=== PATIENT | male | born 1970 | race Hispanic/Latino ===

== ENCOUNTER 2017-12-01 13:10 | Observation (INO) | payer BC ==
[~2017-12-01] VITALS: Ht 175.3 cm; Wt 119.8 kg
[2017-12-01] MEDS ORDERED: ONDANSETRON HCL INJ 2 MG/ML VIAL ONE (14:37)
[2017-12-01] MEDS ORDERED: KETOROLAC TROMETHAMINE 30 MG/ML VIAL ONE (14:37)
[2017-12-01] MEDS ORDERED: SEVOFLURANE INHAL SOLN 250 ML PEN BTL ONE (14:37)
[2017-12-01] MEDS ORDERED: DEXAMETHASONE SOD PHOS INJ 4 MG/ML VIAL ONE (14:37)
[2017-12-01] MEDS ORDERED: PROPOFOL IV EMULSION 10 MG/ML 20 ML VIAL ONE (14:37)
[2017-12-01] MEDS ORDERED: LIDOCAINE HCL 2% LOCAL INJ 5 ML SDV VIAL INJ ONE (14:37)
[2017-12-01 15:32] LABS: BILIRUBIN,URINE NEGATIVE (NEGATIVE); CLARITY,URINE CLEAR (CLEAR); COLOR,URINE YELLOW (YELLOW); KETONES,URINE NEGATIVE (NEGATIVE); LEUKOCYTE ESTERASE ,URINE NEGATIVE (NEGATIVE); NITRITE,URINE NEGATIVE (NEGATIVE); PROTEIN,URINE DIPSTICK NEGATIVE (NEGATIVE); URINE UROBILINOGEN 0.2 mg/dL (0.2 - 1)
--- NOTE | 2017-12-01 15:37 | Diagnostic Imaging Report ---
PROCEDURE: CT ABDOMEN AND PELVIS WITHOUT CONTRAST TECHNIQUE: The abdomen and pelvis were scanned utilizing a multidetector helical scanner from the diaphragm to the lesser trochanter after the oral administration of water. No IV contrast was administered per protocol. Coronal and sagittal multiplanar reformations were obtained. COMPARISON: None. INDICATIONS: LEFT FLANK PAIN FINDINGS: ABSENCE OF INTRAVENOUS CONTRAST DECREASES SENSITIVITY FOR DETECTION OF FOCAL LESIONS AND VASCULAR PATHOLOGY. LOWER THORAX: Lung bases are clear. HEPATOBILIARY: Normal hepatic size and contour. Diffusely decreased attenuation of the hepatic parenchyma with fatty sparing surrounding the gallbladder fossa. No focal lesions. No biliary ductal dilation. Gallbladder is unremarkable. SPLEEN: No splenomegaly. PANCREAS: No focal masses or ductal dilatation. ADRENALS: No adrenal nodules. KIDNEYS/URETERS: Renal calculi as follows: * 7 mm obstructing calculus in the distal left ureter (series 3, image 49, and sagittal image 90), which results in mild left hydronephrosis and hydroureter. * 3 mm nonobstructing calculus in the left interpolar region (series 3, image 67). * Punctate, nonobstructing calculus in the left mid to the inferior aspect (series 3, image 76). * Punctate, nonobstructing calculus in the interpolar right kidney (series 3, image 75). * 2-3 mm nonobstructing calculus in the right inferior pole (series 3, image 85). No right ureteral calculi, hydronephrosis, or obstruction. No significant perinephric stranding. No contour abnormalities. PELVIC ORGANS/BLADDER: Bladder is unremarkable. No focal lesions or stones. Prostate and seminal vesicles are unremarkable. PERITONEUM / RETROPERITONEUM: No free air or fluid. LYMPH NODES: No lymphadenopathy. VESSELS: Unremarkable. GI TRACT: No bowel dilation or evidence of obstruction. BONES AND SOFT TISSUES: No acute bony abnormalities. Mild degenerative changes in the lumbosacral spine. No aggressive lytic lesions. Mild degenerative changes in bilateral sacroiliac joints. Soft tissues are grossly unremarkable. IMPRESSION: 1. 7 mm obstructing calculus in the distal left ureter, which results in mild left hydronephrosis and hydroureter. 2. Bilateral punctate to 3 mm nonobstructing renal calculi, as described. No right ureteral calculus, hydronephrosis, or obstruction. 3. Diffuse hepatic steatosis. Julito Rodriguez M.D. Dictated by: Julito Rodriguez M.D. on 12/01/2017 at 15:40 Electronically approved by: Julito Rodriguez M.D. on 12/01/2017 at 15:40
[2017-12-01 15:38] LABS: RBC,URINE 0-5 /HPF (0-5); WBC,URINE (MAN) 0-5 /HPF (0-5)
[2017-12-01 16:11] LABS: BASOPHILS % 0.5 % (0.0-1.0); EOSINOPHILS # (AUTO) 0.4 (0.0-0.4); EOSINOPHILS % 5.3 % (0.0-6.0); HEMOGLOBIN 14.7 g/dL (14.0-18.0); LYMPHOCYTES # (AUTO) 2.5 (1.0-3.2); LYMPHOCYTES % 33.6 % (18.0-39.1); MEAN CORPUSCULAR HEMOGLOBIN 30.4 pg (28-32); MEAN CORPUSCULAR VOLUME 86.8 fL (81-99); MONOCYTES # (AUTO) 0.6 (0.2-0.8); MONOCYTES % 7.6 % (4.4-11.3); NEUTROPHILS % 52.6 % (38.7-80.0); PLATELET COUNT 232 x10e3/uL (140-360); RED BLOOD COUNT 4.84 x10e6/uL (4.3-5.7)
[2017-12-01 16:23] LABS: ANION GAP 11.2 mmol/L (8-16); CALCIUM 9.7 mg/dL (8.4-10.2); CREATININE, SERUM 1.78 mg/dL (0.72-1.25); POTASSIUM 4.2 mmol/L (3.5-5.1)
[2017-12-01] MEDS ORDERED: KETOROLAC TROMETHAMINE 30 MG/ML VIAL IV STA (17:16)
[2017-12-01] MEDS ORDERED: ONDANSETRON HCL INJ 2 MG/ML VIAL IV PRN (17:30)
[2017-12-01] MEDS ORDERED: HYDROMORPHONE 1MG/1ML INJ IV PRN (17:30)
[2017-12-01] MEDS: SODIUM CHLORIDE 0.9% 1000ML 1,000 ML IV SCH (17:56)
[2017-12-01] MEDS ORDERED: ACETAMINOPHEN 325 MG TAB PO PRN (19:45)
--- NOTE | 2017-12-01 19:56 | History and Physical ---
HISTORY OF PRESENT ILLNESS: A 47-year-old male past with medical history positive for recurrent kidney stones. Came here with left flank pain for a few days. Patient was diagnosed with kidney stone on the left kidney. REVIEW OF SYSTEMS: CARDIOVASCULAR: No chest pain or palpitations. RESPIRATORY: No shortness of breath. No cough. GASTROINTESTINAL: No nausea vomiting or diarrhea. GENITOURINARY: No frequency and no dysuria, but he does have left flank pain. No hematuria. ALLERGIES: NOT ALLERGIC TO ANY MEDICATION. SOCIAL HISTORY: He does not smoke and he does not drink. PAST MEDICAL HISTORY: Recurrent kidney stone with prior kidney stone a few years ago. PHYSICAL EXAMINATION: HEART: Regular rhythm. No murmur. No extra sounds. LUNGS: Clear bilaterally. ABDOMEN: Soft. Nondistended, nontender, no visceromegaly. EXTREMITIES: Show no evidence of cyanosis, edema or trauma. LABORATORY DATA: On the blood work we have a BMP with a sodium 137, potassium 4.2, chloride 106. CO2 24. BUN 21, creatinine 1.78, glucose 91. On the CBC white blood count 7.53, hemoglobin 14.7, hematocrit 42.0, platelet count 232,000. CT of the abdomen showed nonobstructive kidney stones on both kidneys and a left hydronephrosis with a 7 mm distal ureteral stone. FINAL IMPRESSION: 1. Left kidney stone with left hydronephrosis. 2. Acute renal failure. PLAN OF TREATMENT: Continue with IV fluids. Dilaudid 1 mg IV q.3 h. as needed. Zofran 4 mg q.4 h. as needed. Sodium chloride 125 mL an hour. A urology consult with Dr. Calvillo. Patient will have another BMP tomorrow to monitor the kidney function. We are going to do a KUB tomorrow also. Job#: [id number]
[2017-12-02] VITALS (7 sets, daily range): BP systolic 118–166; BP diastolic 76–94
[2017-12-02] MEDS: SODIUM CHLORIDE 0.9% 1000ML 1,000 ML IV SCH ×3 (01:47→18:40)
--- NOTE | 2017-12-02 05:50 | Diagnostic Imaging Report ---
ABDOMEN-1VIEW (KUB) Clinical history: Kidney stone Technique: AP view abdomen Comparison: 12/01/2017 Findings: Abdomen: Nonobstructive bowel gas pattern. Other: 4 to 5 mm calcification projects over the left lateral mid sacrum. Nonobstructing 3 mm left superior renal calculus. Impression: 4 to 5 mm calcification over the left pelvis may correspond to distal ureteral stone seen on CT. Signed by: Dr Mary Beth Parrish MD on 12/02/2017 5:46 AM
[2017-12-02 06:10] LABS: BASOPHILS % 0.5 % (0.0-1.0); EOSINOPHILS # (AUTO) 0.4 (0.0-0.4); EOSINOPHILS % 5.5 % (0.0-6.0); HEMOGLOBIN 14.1 g/dL (14.0-18.0); LYMPHOCYTES # (AUTO) 2.3 (1.0-3.2); LYMPHOCYTES % 31.3 % (18.0-39.1); MEAN CORPUSCULAR HEMOGLOBIN 30.7 pg (28-32); MEAN CORPUSCULAR HGB CONC 35.3 g/dL (31-35); MONOCYTES # (AUTO) 0.6 (0.2-0.8); MONOCYTES % 8.8 % (4.4-11.3); NEUTROPHILS # (AUTO) 3.9 (2.1-6.9); NEUTROPHILS % 53.4 % (38.7-80.0); PLATELET COUNT 230 x10e3/uL (140-360); RED CELL DISTRIBUTION WIDTH 11.9 % (11.7-14.4)
[2017-12-02 06:42] LABS: ANION GAP 12.7 mmol/L (8-16); CALCIUM 9.2 mg/dL (8.4-10.2); CREATININE, SERUM 1.71 mg/dL (0.72-1.25); POTASSIUM 4.7 mmol/L (3.5-5.1)
--- NOTE | 2017-12-02 15:17 | Diagnostic Imaging Report ---
PROCEDURE:X-RAY ABDOMEN - KUB COMPARISON:[facility], CT, CT ABDOMEN/PELVIS WO, 12/01/2017, 14:59. INDICATIONS:F/U KIDNEY STONE FINDINGS: There is a non-obstructed bowel-gas pattern. 3 mm nonobstructing calculus projecting in the superior to mid left renal shadow. 7 mm radiopaque density projecting over the left sacrum, corresponding to the previously visualized distal left ureteral calculus. No other radiopaque densities are visualized. No acute bony abnormalities. CONCLUSION: 1. Stable 7 mm nonobstructing distal left ureteral calculus. 2. Stable 3 mm nonobstructing calculus in the superior to mid left kidney Julito Rodriguez M.D. Dictated by: Julito Rodriguez M.D. on 12/02/2017 at 15:20 Electronically approved by: Julito Rodriguez M.D. on 12/02/2017 at 15:20
--- NOTE | 2017-12-02 15:37 | Progress Note ---
DATE: ADDENDUM TO INTERNAL MEDICINE PROGRESS NOTE ADDITIONAL DIAGNOSES 1. Obesity. 2. [id number] renal failure, stage 3. Continue IV fluids. Continue monitoring BUN and creatinine. Job#: [id number]
--- NOTE | 2017-12-02 15:38 | Progress Note ---
DATE: INTERNAL MEDICINE PROGRESS NOTE SUBJECTIVE: Patient is doing better. No significant pain today. Patient still has a kidney stone, and we are waiting for Dr. Calvillo, urologist, to decide about a stent. The 2nd x-ray that we had done today still is showing the stone in the distal ureter. PHYSICAL EXAM: HEART: Shows regular rhythm, normal S1 and S2 sounds. LUNGS: Clear bilaterally. ABDOMEN: Soft. No tenderness, no distention, no visceromegaly. EXTREMITIES: Show no evidence of cyanosis, edema or trauma. VITAL SIGNS: Blood pressure 118/78. Temperature 96.3. Heart rate 62 per minute. Respiratory rate is 18 per minute. Oxygen saturation 98%. On the BMP: Sodium 138, potassium 4.7, chloride 106, CO2 24, BUN 24, creatinine 1.71, glucose 109. On the CBC: White blood count 7.31, hemoglobin 14.1, hematocrit 40.0, platelet count 230,000. The KUB showed a distal ureteral stone. FINAL IMPRESSION: 1. Left distal ureteral stone with hydronephrosis. 2. Acute renal failure on chronic renal failure. PLAN OF TREATMENT: Continue normal saline at 125 mL an hour. Continue Dilaudid 1 mg IV q.3 h. as needed. Zofran 4 mg IV q.4 h. as needed. Tylenol 325 mg q.[address] Calvillo, urologist, is following the case, and the patient might need a stent. Job#: [id number] EV
[2017-12-03 00:30] VITALS: BP 136/80
[2017-12-03 05:00] VITALS: BP 146/77
[2017-12-03] MEDS: SODIUM CHLORIDE 0.9% 1000ML 1,000 ML IV SCH (05:07)
[2017-12-03] MEDS ORDERED: IOPAMIDOL 610MG/1ML 300 MG/ML VIAL IV ONE (07:32)
[2017-12-03 07:55] LABS: ANION GAP 12.4 mmol/L (8-16); CALCIUM 8.8 mg/dL (8.4-10.2); CREATININE, SERUM 1.43 mg/dL (0.72-1.25); POTASSIUM 4.4 mmol/L (3.5-5.1)
[2017-12-03] MEDS ORDERED: LEVOFLOXACIN 500MG/D5W 100ML 100 ML IV ONE ×2 (08:03→09:00)
[2017-12-03 08:04] VITALS: BP 151/99
[2017-12-03 09:03] VITALS: BP 123/74
--- NOTE | 2017-12-03 09:13 | Consultation ---
DATE OF CONSULTATION: December 03, 2017 CHIEF COMPLAINT: Left ureteral stone. HISTORY OF PRESENT ILLNESS: Mr. Licea is a 47-year-old male who was in his usual state of health until 5 days ago. He complains of acute, severe, sharp left-sided flank pain. Denied fevers, no chills. Positive nausea and denied vomiting. PAST MEDICAL HISTORY: Notable for kidney stones. MEDICATIONS: Please see MAR. ALLERGIES: NKDA. SOCIAL HISTORY: He does not smoke or drink. FAMILY HISTORY: Denied urologic stones or malignancies. REVIEW OF SYSTEMS: Noncontributory to the 12-point review of systems. PHYSICAL EXAMINATION GENERAL: A middle-aged male currently in no acute distress. VITALS: Currently he is afebrile with stable vital signs. HEENT: The sclerae are anicteric. NECK: Supple. BACK: Without costovertebral angle tenderness bilaterally. ABDOMEN: Soft and nontender, nondistended. There is no palpable mass. No palpable hernias. No palpable lymphadenopathy. : Normal male external genitalia. EXTREMITIES: No edema. NEURO: Alert. PSYCH: Mood appropriate. SKIN: Intact, normal color. PERTINENT LABORATORY DATA: CT scan revealing a 7 mm left distal ureteral calculus and proximal hydronephrosis, 3 mm left mid pole stone, 1 mm left mid pole stone, 1 mm right mid pole stone, a 3 mm right lower pole stone. Urinalysis positive blood. Hemoglobin 14, hematocrit 42, platelet count 232,000. White blood cell count 7500. Sodium 137. Potassium 4.2, chloride 106, bicarb 24. BUN 21. Creatinine 1.78. Glucose 94. IMPRESSION: 1. Left ureteral calculus. 2. Left hydronephrosis. 3. Acute renal failure. 4. Renal colic. 5. Hydronephrosis. 6. Microscopic hematuria. PLAN: Will employ a brief trial of passage and should this fail the patient will need stenting and dilation with antibiotics. Renal failure with outpatient followup for definitive management of stones. Thank you for allowing me to participate in the care of your patient. Will be happy to follow along with you. Job#: [id number]
--- NOTE | 2017-12-03 09:15 | Operative Report ---
DATE OF PROCEDURE: December 03, 2017 PREOPERATIVE DIAGNOSES 1. Left-sided hydronephrosis. 2. Left ureteral calculus. 3. Microscopic hematuria. POSTOPERATIVE DIAGNOSES 1. Left-sided hydronephrosis. 2. Left ureteral calculus. 3. Microscopic hematuria. PROCEDURES 1. Cystourethroscopy with right visualization and retrograde pyelogram (entirely separate procedure for diagnosis of microscopic hematuria). 2. Cystourethroscopy with insertion of a left indwelling (entirely separate procedure for diagnosis of left hydronephrosis). 3. Supervision of fluoroscopy. 4. Interpretation of retrograde pyelography. ANESTHESIA: General. ESTIMATED BLOOD LOSS: Minimal. COMPLICATIONS: None. INDICATIONS FOR PROCEDURE: Mr. Licea is a 47-year-old male, who has failed a trial of passage. He and I had a long discussion of alternatives, risks, and benefits of nothing, cystoscopy, stent placement, percutaneous nephrostomy, open surgery. He voiced understanding of the options, the alternatives, the risks, and the benefits, and he elected to proceed. PROCEDURE IN DETAIL: After informed consent was obtained, the patient was taken to the operating suite. He was placed supine on the operating table. He underwent general anesthesia by the anesthesia service. He was placed in dorsal lithotomy position, sterilely prepped and draped in a standard fashion for cystoscopy. A 22.5-Scottish cystoscope was inserted per urethra. A normal urethral was noted. Panendoscopy of the bladder revealed no tumors and no stones. Both ureteral orifices were within normal anatomic location and position and seen to efflux clear urine. Bilateral retrograde pyelogram was performed. The right was normal. Left revealed 5 x 5-mm distal ureteral calculus with proximal hydronephrosis. Guidewire was inserted. Ureteral stent was deployed with a coil in renal pelvis. There was a plethora of bloody drainage from this. At this time, bladder was drained, patient was awakened from anesthesia, and transported to recovery room in excellent condition with no untoward effects noted. SUPERVISION OF FLUOROSCOPY, INTERPRETATION OF RETROGRADE PYELOGRAPHY: I was present throughout the entire procedure and I supervised the use of fluoroscopy as there was no radiologist at the time of procedure. Attention was turned toward the right and left ureteral orifices. A 5-Scottish open-ended catheter revealing delicate ureters, delicate pelvicaliceal systems, no evidence efflux on the right. No hydronephrosis on the right. In left side, there was a distal 5 x 5-mm calculus with proximal hydronephrosis. Postoperative views on the left side reveals stent in good position. Job#: [id number] CQ
[2017-12-03] MEDS ORDERED: FENTANYL CITRATE/PF 100MCG/2 ML INJ ONE (18:58)
[2017-12-03] MEDS ORDERED: MIDAZOLAM HCL 2 MG/2 ML VIAL ONE (18:58)
--- NOTE | 2017-12-04 01:33 | Discharge Summary ---
HISTORY OF PRESENT ILLNESS: [id number]old male with past medical history negative for any significant medical condition except for borderline hypertension, came here with left ureteral kidney stone, which did not pass by itself. He had a stent placed by Dr. Calvillo, went home. PHYSICAL EXAM: Heart: Shows regular rhythm, normal S1 and S2 sounds. Lungs: Clear bilaterally. Abdomen: Soft. FINAL IMPRESSION: Left ureteral kidney stone, status post stent placement. Patient was discharged home with instruction to follow up with Dr. Calvillo in a week and myself in 2 weeks. RICARDO MONTOYA MD Job#: [id number]
== END 2017-12-03 10:17 | disposition home or self-care (01) ==
LOC: ER 13:10 → ERHOLD 17:32 → IMCU 12-02 01:53
PROVIDERS: ADMIT Internal Medicine; ATTEND Internal Medicine
DX: N13.2 Hydronephrosis with renal and ureteral calculous obstruction (principal); Z87.442 Personal history of urinary calculi; N17.9 Acute kidney failure, unspecified; R31.29 Other microscopic hematuria; N18.3 Chronic kidney disease, stage 3 (moderate); E66.9 Obesity, unspecified; Z68.41 Body mass index [BMI] 40.0-44.9, adult; I12.9 Hypertensive chronic kidney disease with stage 1 through stage 4 chronic kidney disease, or unspecified chronic kidney disease
CPT/HCPCS: 36415 ×3; 52332; 74018; 74176; 74420; 80048 ×3; 81001; 85025 ×2; 87086; 99284; C1758; C1874; G0378 ×3; J1100; J1170; J1885; J1956; J2001; J2250; J2405; J7030 ×3; Q9967

== ENCOUNTER → 2017-12-09 | Day surgery (SDC) | payer BC ==
[~2017-12-09] MED LIST: CEFTRIAXONE SOD 1 GM VIAL ONE; DEXAMETHASONE SOD PHOS INJ 4 MG/ML VIAL ONE; FENTANYL CITRATE/PF 100MCG/2 ML INJ ONE; IOPAMIDOL 610MG/1ML 300 MG/ML VIAL IV ONE; LIDOCAINE HCL 2% LOCAL INJ 5 ML SDV VIAL INJ ONE; MIDAZOLAM HCL 2 MG/2 ML VIAL ONE; ONDANSETRON HCL INJ 2 MG/ML VIAL ONE; PROPOFOL IV EMULSION 10 MG/ML 20 ML VIAL ONE; SEVOFLURANE INHAL SOLN 250 ML PEN BTL ONE
--- NOTE | 2017-12-12 10:17 | Operative Report ---
DATE OF PROCEDURE: December 09, 2017 PREOPERATIVE DIAGNOSES 1. Left indwelling stent. 2. Left ureteral calculus. POSTOPERATIVE DIAGNOSES 1. Left indwelling stent. 2. Left ureteral calculus. PROCEDURES 1. Cystourethroscopy with removal of left indwelling stent (entirely separate procedure for left indwelling stent). 2. Left-sided ureteroscopy with laser lithotripsy (entirely separate procedure to debulk a large left impacted ureteral calculus). 3. Left-sided ureteroscopy with stone extraction (entirely separate procedure for the explicit purpose of stone for analysis and not required for laser lithotripsy). 4. Supervision of fluoroscopy for the ureteroscopy portion. 5. Supervision of fluoroscopy for stent portion. 6. Interpretation of retrograde pyelography. ANESTHESIA: General. ESTIMATED BLOOD LOSS: Minimal. COMPLICATIONS: None. INDICATIONS: Mr. Licea is a 47-year-old male with an indwelling left ureteral stent and left ureteral catheter. He and I had long discussion about alternatives, risks, and benefits including doing nothing, ureteroscopy, shockwave lithotripsy, percutaneous surgery, open surgery. He voiced understanding of the options, alternatives, risks, and benefits and elected to proceed. PROCEDURE IN DETAIL: After informed consent was obtained, the patient was taken to the operative site and placed supine on the table, and underwent general anesthesia by the anesthesia service. He was then placed in the dorsal lithotomy position and sterilely prepped and draped in the standard fashion for cystoscopy. A 22.5-Greek cystoscope was inserted per urethra. It was noted to pass normal. Panendoscopy of the bladder revealed no tumors and no stones. Both ureteral orifices were within normal anatomic location and position and seen to efflux clear urine. Bilateral retrograde pyelograms were performed revealing a distal left ureteral calculus with proximal hydronephrosis. The ureteroscope was driven to the level of the offending stone. Utilizing a 365 micron laser fiber, the stone was obliterated. Multiple fragments were basket extracted and passed off the table as specimens. Bladder was drained. The patient was awakened from anesthesia and transported to the recovery room in excellent condition. SUPERVISION OF FLUOROSCOPY, INTERPRETATION OF RETROGRADE URETERAL PYELOGRAPHY: I was present throughout the entire procedure and I supervised the use of fluoroscopy as no radiologist present at any time during this procedure. Attention was turned toward the left and right ureteral orifices, catheterized and retrograde pyelograms were performed revealing a left mid to distal ureteral calculus. No further evidence of any filling defects after lithotripsy. Job#: [id number] RI
== END | disposition home or self-care (01) ==
LOC: OR 08:17
PROVIDERS: ATTEND Urology
DX: N13.2 Hydronephrosis with renal and ureteral calculous obstruction (principal); N17.9 Acute kidney failure, unspecified; Z46.6 Encounter for fitting and adjustment of urinary device; Z01.810 Encounter for preprocedural cardiovascular examination
CPT/HCPCS: 52353; 74420; 88300; 93005; J0696; J1100; J2001; J2250; J2405; Q9967